=== PATIENT | female | born 1970 | race Caucasian/White ===

== ENCOUNTER → 2024-03-19 13:33 | Outpatient (REF) | payer BC, SELFPAY | LOC: PAVMRI 13:33 | PROVIDERS: ATTENDING PHYSICIAN Specialist | DX: G35 Multiple sclerosis (principal) | CPT/HCPCS: 70551; 72141; 72146 ==

== ENCOUNTER → 2024-12-07 13:58 | Outpatient (REF) | payer BC, SELFPAY | LOC: HWWDC 13:58 | PROVIDERS: ATTENDING PHYSICIAN Nurse Practitioner Family; FAMILY PHYSICIAN Internal Medicine | DX: Z12.31 Encounter for screening mammogram for malignant neoplasm of breast (principal) | CPT/HCPCS: 77063; 77067 ==

== ENCOUNTER → 2025-02-20 11:12 | Outpatient (REF) | payer BC, SELFPAY | LOC: PAVMRI 11:12 | PROVIDERS: ATTENDING PHYSICIAN Specialist; FAMILY PHYSICIAN Internal Medicine | DX: G35 Multiple sclerosis (principal); G24.3 Spasmodic torticollis | CPT/HCPCS: 70553; 72156; A9575 ==

== ENCOUNTER → 2025-02-27 11:17 | Outpatient (REF) | payer BC, SELFPAY | LOC: PAVMRI 11:17 | PROVIDERS: ATTENDING PHYSICIAN Specialist; FAMILY PHYSICIAN Internal Medicine | DX: G35 Multiple sclerosis (principal) | CPT/HCPCS: 72157; A9575 ==